=== PATIENT | male | born 1940 | race Caucasian/White ===

== ENCOUNTER 2016-08-16 19:59 | Emergency (ER) | payer MEDICARE ==
[~2016-08-16] VITALS: Ht 175.3 cm; Wt 72.6 kg
[2016-08-16 20:51] LABS: Basophils # (auto) 0.1 uL; Basophils % (auto) 0.4 % (0.0-2.0); Eosinophils # (auto) 0.2 uL; Eosinophils % (auto) 1.5 % (0.0-7.0); Hematocrit 54.5 % (41.0-53.0); Hemoglobin 18.2 g/dL (13.5-17.5); Lymphocytes # (auto) 2.3 uL; Lymphocytes % (auto) 19.8 % (10.0-50.0); Mean Corpuscular Hemoglobin 31.5 pg (28.0-32.0); Mean Corpuscular Hgb Conc. 33.4 g/dL (32.0-36.0); Mean Corpuscular Volume 94.5 fL (80.0-100.0); Mean Platelet Volume 9.3 fL (7.4-10.4); Monocytes # (auto) 0.8 uL; Monocytes % (auto) 7.1 % (0.0-12.0); Neutrophils # (auto) 8.3 uL; Neutrophils % (auto) 71.2 % (37.0-80.0); Platelet Count (auto) 229 10^3/uL (140-450); White Blood Cell 11.6 10^3/uL (4.4-10.8)
[2016-08-16 21:07] LABS: Albumin 3.6 g/dL (3.4-5.0); Calcium 8.8 mg/dL (8.5-10.1); Potassium 4.1 mmol/L (3.5-5.1)
[2016-08-16 21:10] LABS: BUN/Creatinine Ratio 10.8
[2016-08-16 21:12] LABS: Bilirubin, Total 0.4 mg/dL (0.2-1.0)
[2016-08-17 01:37] VITALS: BP 134/83
== END 2016-08-17 05:31 | disposition home or self-care (01) ==
LOC: ER 19:59
DX: T81.89XA Other complications of procedures, not elsewhere classified, initial encounter (principal); K94.09 Other complications of colostomy; R10.9 Unspecified abdominal pain; I10 Essential (primary) hypertension; E11.65 Type 2 diabetes mellitus with hyperglycemia; K94.01 Colostomy hemorrhage; Z85.038 Personal history of other malignant neoplasm of large intestine; Y93.89 Activity, other specified; Y99.8 Other external cause status; Y92.89 Other specified places as the place of occurrence of the external cause
CPT/HCPCS: 36415; 80053; 85025